=== PATIENT | male | born 1975 | race Caucasian/White ===

== ENCOUNTER 2018-10-14 10:49 | Emergency (ER) | payer BC, SELFPAY ==
[2018-10-14 11:20] VITALS: BP 115/78; PULSE 63; RESP 14; TEMP 36.4; O2SAT 95; BMI 28.5
[2018-10-14] MEDS: IBUPROFEN 400 MG TABLET 800 MG PO (12:25)
[2018-10-14 12:34] LABS: Add Manual Diff / Slide Review NO; Basophils Absolute Auto 0 /uL (0-100); Basophils Percent Auto 0.5 % (0-2); Eosinophils Absolute Auto 100 /uL (0-450); Eosinophils Percent Auto 1.8 % (2-4); Hemoglobin 14.8 g/dL (13.5-17.5); Lymphocytes Absolute Auto 2500 /uL (1100-4500); Lymphocytes Percent Auto 29.6 % (25-40); Mean Corpuscular HGB Conc 34.5 % (30-36); Mean Corpuscular Hemoglobin 28.4 PG (26-34); Mean Corpuscular Volume 82.5 fL (80-100); Monocytes Absolute Auto 700 /uL (0-900); Monocytes Percent Auto 7.9 % (3-14); Neutrophils Absolute Auto 5100 /uL (1500-7000); Neutrophils Percent Auto 60.2 % (50-75); Platelet Count 216 X10^3/uL (150-400); Red Blood Cell Count 5.21 X10^6/uL (4.5-5.9); Red Cell Distribution Width 13.1 % (11.6-14.8); White Blood Cell Count 8.6 X10^3/uL (4.5-11.0)
[2018-10-14 12:40] LABS: BUN Creatinine Ratio 15.6 (6-22); Blood Urea Nitrogen 14 mg/dL (9-20); Calcium 9.1 mg/dL (8.4-10.2); Carbon Dioxide 24 mmol/L (22-32); Chloride 103 mmol/L (98-107); Estimated Glomerular Filt Rate > 60.0 mL/min (>60); Glucose 89 mg/dL (70-100); HEMOLYSIS 24 (0-50); Potassium 3.9 mmol/L (3.4-5.1); Sodium 139 mmol/L (137-145)
[2018-10-14 13:06] LABS: Bacteria Urine None Seen; WBC Urine None Seen (0-5/HPF)
[2018-10-14 13:28] LABS: Culture Indicated Urine Cult Not Indicated; RBC Urine 1-5/HPF (0-5/HPF)
[2018-10-14 13:30] VITALS: BP 117/64; PULSE 68; RESP 18; O2SAT 98
--- NOTE | 2018-10-14 13:32 | DI.CT.S_ITS ---
PROCEDURE: CT KIDNEY URETER BLADDER (KUB) INDICATIONS: ? kidney stones TECHNIQUE: Noncontrast 5 mm thick sections acquired from the diaphragms to the symphysis. 5 mm thick coronal and sagittal reformats were then performed. For radiation dose reduction, the following was used: automated exposure control, adjustment of mA and/or kV according to patient size. COMPARISON: None. FINDINGS: Image quality: Excellent. Lung bases: Lung bases are clear. Heart size is normal. Urinary system: Both kidneys are normal in size. There is a nonobstructing left-sided kidney stone seen inferiorly that measures 12 mm, as on series 2 image 42. There is prominence of the right renal pelvis, yet without a cause of obstruction seen. There is no hydronephrosis seen on either side. Both ureters appear non-dilated throughout their expected courses. Bladder wall thickness is normal; no calcified bladder stones. Other solid organs: Liver is normal in size. Gallbladder wall is not thickened. Pancreas is normal in contours. Spleen is normal in size. No adrenal nodules. Peritoneum and bowel: Unenhanced bowel loops demonstrate normal wall thickness and caliber. No free fluid or air. Appendectomy clips are seen. Nodes and vessels: No retroperitoneal or mesenteric adenopathy by size criteria. Aorta and inferior vena cava are normal in caliber. 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 Abdominal wall: No ventral hernias. Pelvis: No free pelvic fluid. No inguinal hernias or adenopathy. Bones: No suspicious bony lesions. No vertebral body compression fractures. Focal lower lumbar spine degenerative changes are seen at L4-L5 and L5-S1. IMPRESSION: No ureteral stones or hydronephrosis can be seen. There is a 12 mm nonobstructing left-sided kidney stone seen inferiorly. Incidental note is made of: Retroaortic left renal vein Appendectomy Premature lower lumbar spine degenerative change. Dictated by: Liam Tyson M.D. on 10/14/2018 at 13:12 Approved by: Liam Tyson M.D. on 10/14/2018 at 13:16
--- NOTE | 2018-10-14 13:39 | ED_ITS ---
HPI - Male Genitourinary <BEULAH Campos-BC - Last Filed: 10/14/18 17:11> General Chief complaint: Urogenital-Male Stated complaint: Lower back pain Time Seen by Provider: 10/14/18 13:31 Source: patient and family Mode of arrival: ambulatory Limitations: no limitations History of Present Illness HPI Narrative: The patient is a 42-year-old male nonsmoker with history of kidney stones who presents with a chief complaint of lower back pain. He states it started yesterday is consistent with his previous stones. He noticed when he was urinating that there are crystals in it. He denies any fevers. He states he had nausea yesterday, but no longer today. Denies any vomiting. Denies any abdominal pain. He states he took 800 mg of ibuprofen last night for the pain and had another 800 mg this morning in triage. He denies any dysuria urgency or frequency. He is trying to push water. He denies any hematuria. Related Data Previous Rx's Medication Instructions Recorded hydrocodone-acetaminophen 1 tab PO Q4-6H PRN #10 tab 10/14/18 ketorolac 10 mg PO Q6H PRN #8 tab 10/14/18 ondansetron 4 mg PO BID-TID PRN #20 tab 10/14/18 tamsulosin 0.4 mg PO DAILY #7 cap 10/14/18 Allergies Allergy/AdvReac Type Severity Reaction Status Date / Time No Known Drug Allergies Allergy Verified 10/14/18 11:24 Review of Systems <FREDI Campos - Last Filed: 10/14/18 17:11> Review of Systems GENERAL: Denies chills, fatigue, malaise, fever, sweats. HEENT: Denies sinus pain, ear pain, sore throat, difficulty swallowing, dizziness. RESPIRATORY: Denies dyspnea, cough, wheezing, hemoptysis, sputum. CARDIOVASCULAR: Denies chest pain, palpitations, orthopnea, edema, GASTROINTESTINAL: Denies nausea, vomiting, abdominal pain, diarrhea, constipation, melena. : See HPI MUSCULOSKELETAL: denies weakness, joint pain, or bony pain SKIN: Denies rash, skin lesions, or other NEUROLOGIC: Denies weakness, headache, numbness, change in speech, confusion, seizures, incoordination. PSYCHIATRIC: No concerning psychosocial issues. 12 point review of systems is negative except for those stated above PFSH <CHLOE Campos - Last Filed: 10/14/18 17:11> Medical History Kidney stone (Acute) Surgical History History of appendectomy (Acute) Social History Smoking Status: Never smoker Social History Smoking Status: Never smoker Exam <CHLOE Campos - Last Filed: 10/14/18 17:11> Narrative Exam Narrative: GENERAL: This is a well-nourished, well-developed patient, no acute distress HEAD: Atraumatic. Normocephalic. No temporal or scalp tenderness. EYES: Pupils equal round and reactive. Extraocular motions intact. No scleral ic terus. No injection or drainage. ENT: Nose without bleeding, purulent drainage or septal hematoma. Throat without erythema, tonsillar hypertrophy or exudate. Uvula midline. Airway patent. NECK: Trachea midline. No JVD or lymphadenopathy. Supple, nontender, no meningeal signs. CARDIOVASCULAR: Regular rate and rhythm without murmurs, gallops, or rubs. RESPIRATORY: Clear to auscultation. Breath sounds equal bilaterally. No wheezes, rales, or rhonchi. No cough. No increased respiratory effort. GASTROINTESTINAL: Abdomen soft, non-tender, nondistended. No hepato- splenomegaly, or palpable masses. No guarding. EXTREMITIES: No clubbing, cyanosis, or edema. No joint tenderness, effusion, or edema noted. BACK: Nontender without deformity or crepitance. CVA tenderness on the right side, slight CVA tenderness left side NEURO: AOx3. SKIN: No rash or erythema. Initial Vital Signs Initial Vital Signs: Vital Signs Temperature 97.6 F 10/14/18 11:20 Pulse Rate 63 10/14/18 11:20 Respiratory Rate 14 10/14/18 11:20 Blood Pressure 115/78 10/14/18 11:20 Pulse Oximetry 95 10/14/18 11:20 <Lucy Ardon DO - Last Filed: 10/14/18 19:09> Initial Vital Signs Initial Vital Signs: Vital Signs Temperature 97.6 F 10/14/18 11:20 Pulse Rate 63 10/14/18 11:20 Respiratory Rate 14 10/14/18 11:20 Blood Pressure 115/78 10/14/18 11:20 Pulse Oximetry 95 10/14/18 11:20 Course <CHLOE Campos - Last Filed: 10/14/18 17:11> Orders Ordered: ED Orders 10/14/18 12:01 Urine Microscopic Stat 10/14/18 12:21 Basic Metabolic Panel Stat CBC [Complete Blood Count AUTO DIFF] Stat 10/14/18 13:32 CT kidney ureter bladder (KUB) Stat Discontinued Medications Ibuprofen (Advil) 800 mg PO NOW ONE Stop: 10/14/18 12:25 Last Admin: 10/14/18 12:25 Dose: 800 mg Vital Signs - 8 hr 10/14/18 11:20 10/14/18 13:30 10/14/18 14:47 Temperature 97.6 F Pulse Rate 63 68 70 Respiratory Rate 14 18 14 Blood Pressure 115/78 Blood Pressure [Right Arm] 117/64 118/72 Pulse Oximetry 95 98 98 <Lucy Ardon DO - Last Filed: 10/14/18 19:09> Orders Ordered: ED Orders 10/14/18 12:01 Urine Microscopic Stat 10/14/18 12:21 Basic Metabolic Panel Stat CBC [Complete Blood Count AUTO DIFF] Stat 10/14/18 13:32 CT kidney ureter bladder (KUB) Stat Discontinued Medications Ibuprofen (Advil) 800 mg PO NOW ONE Stop: 10/14/18 12:25 Last Admin: 10/14/18 12:25 Dose: 800 mg Vital Signs - 8 hr 10/14/18 11:20 10/14/18 13:30 10/14/18 14:47 Temperature 97.6 F Pulse Rate 63 68 70 Respiratory Rate 14 18 14 Blood Pressure 115/78 Blood Pressure [Right Arm] 117/64 118/72 Pulse Oximetry 95 98 98 MDM - Male Genitourinary <CHLOE Campos - Last Filed: 10/14/18 17:11> Lab Data Result diagrams: 10/14/18 12:21 10/14/18 12:21 Lab Results 05/1110/14/18 10/14/18 Range/Units 12:01 12:21 12:21 WBC 8.6 (4.5-11.0) X10^3/uL RBC 5.21 (4.5-5.9) X10^6/uL Hgb 14.8 (13.5-17.5) g/dL Hct 43.0 (41-53) % MCV 82.5 (80-100) fL MCH 28.4 (26-34) PG MCHC 34.5 (30-36) % RDW 13.1 (11.6-14.8) % Plt Count 216 (150-400) X10^3/uL Neut % (Auto) 60.2 (50-75) % Lymph % (Auto) 29.6 (25-40) % [place] % (Auto) 7.9 (3-14) % Eos % (Auto) 1.8 L (2-4) % Baso % (Auto) 0.5 (0-2) % Neut # (Auto) 5100 (7537-7303) /uL Lymph # (Auto) 2500 (5650-6632) /uL [place] # (Auto) 700 (0-900) /uL Eos # (Auto) 100 (0-450) /uL Baso # (Auto) 0 (0-100) /uL Sodium 139 (137-145) mmol/L Potassium 3.9 (3.4-5.1) mmol/L Chloride 103 (98-107) mmol/L Carbon Dioxide 24 (22-32) mmol/L BUN 14 (9-20) mg/dL Creatinine 0.90 (0.66-1.25) mg/dL Estimated GFR > 60.0 (>60) mL/min BUN/Creatinine Ratio 15.6 (6-22) Glucose 89 (70-100) mg/dL Calcium 9.1 (8.4-10.2) mg/dL Urine RBC 1-5/hpf (0-5/HPF) Urine WBC None seen (0-5/HPF) Urine Bacteria None seen (None) Ur Culture Indicated? Cult not indicated Urine Dip Bedside Urine Glucose Negative Bedside Urine Bilirubin - Negative Bedside Urine Ketone - Negative Urine Specific [place] 1.015 Bedside Urine Occult Blood + Bedside Urine pH 5.5 Bedside Urine Protein - Negative Bedside Urine Urobilinogen - Negative Bedside Urine Nitrite - Negative Bedside Urine Leukocytes - Negative Esterase Imaging Data CT scan - abdomen: Radiologist's impression: Natan Andrews 42 M [address] [address] [address] Scan Report Signed Patient: Natan Andrews#: [id number] : 1975Acct:[id number] Age/Sex: 42 / MDate of Service: 10/14/18 Loc: ED Accession Number: [id number] Procedure: CT kidney ureter bladder (KUB) Ordering Provider: Lucy Silver- PROCEDURE: CT KIDNEY URETER BLADDER (KUB) INDICATIONS: ? kidney stones TECHNIQUE: Noncontrast 5 mm thick sections acquired from the diaphragms to the symphysis. 5 mm thick coronal and sagittal reformats were then performed. For radiation dose reduction, the following was used: automated exposure control, adjustment of mA and/or kV according to patient size. COMPARISON: None. FINDINGS: Image quality: Excellent. Lung bases: Lung bases are clear. Heart size is normal. Urinary system: Both kidneys are normal in size. There is a nonobstructing left-sided kidney stone seen inferiorly that measures 12 mm, as on series 2 image 42. There is prominence of the right renal pelvis, yet without a cause of obstruction seen. There is no hydronephrosis seen on either side. Both ureters appear non-dilated throughout their expected courses. Bladder wall thickness is normal; no calcified bladder stones. Other solid organs: Liver is normal in size. Gallbladder wall is not thickened. Pancreas is normal in contours. Spleen is normal in size. No adrenal nodules. Peritoneum and bowel: Unenhanced bowel loops demonstrate normal wall thickness and caliber. No free fluid or air. Appendectomy clips are seen. Nodes and vessels: No retroperitoneal or mesenteric adenopathy by size criteria. Aorta and inferior vena cava are normal in caliber. 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 Abdominal wall: No ventral hernias. Pelvis: No free pelvic fluid. No inguinal hernias or adenopathy. Bones: No suspicious bony lesions. No vertebral body compression fractures. Focal lower lumbar spine degenerative changes are seen at L4-L5 and L5-S1. IMPRESSION: No ureteral stones or hydronephrosis can be seen. There is a 12 mm nonobstructing left-sided kidney stone seen inferiorly. Incidental note is made of: Retroaortic left renal vein Appendectomy Premature lower lumbar spine degenerative change. Dictated by: Liam Tyson M.D. on 10/14/2018 at 13:12 Approved by: Liam Tyson M.D. on 10/14/2018 at 13:16 MDM Narrative Medical decision making narrative: The patient is a 42-year-old male who presents with a chief complaint of probable kidney stone. He was found have 12 mm stone in the inferior portion of his left kidney. He does not have any stones in his ureters at this point in time. However he was urinating shards earlier today. Thus I will treat him with Flomax, nausea medication and pain medication. He was given a prescription of Zofran, [place], as well as Toradol. I discussed at length not taking other anti-inflammatory medication with the Toradol. Encouraged follow-up primary care provider, pushing fluids and straining urine. Discussed follow-up if fever, burning on urination signs of infection inability keep down fluids etc. Patient and father had no questions or concerns upon discharge. <Lucy Ardon, DO - Last Filed: 10/14/18 19:09> Lab Data Lab Results 10/14/18 10/14/18 10/14/18 Range/Units 12:01 12:21 12:21 WBC 8.6 (4.5-11.0) X10^3/uL RBC 5.21 (4.5-5.9) X10^6/uL Hgb 14.8 (13.5-17.5) g/dL Hct 43.0 (41-53) % MCV 82.5 (80-100) fL MCH 28.4 (26-34) PG MCHC 34.5 (30-36) % RDW 13.1 (11.6-14.8) % Plt Count 216 (150-400) X10^3/uL Neut % (Auto) 60.2 (50-75) % Lymph % (Auto) 29.6 (25-40) % [place] % (Auto) 7.9 (3-14) % Eos % (Auto) 1.8 L (2-4) % Baso % (Auto) 0.5 (0-2) % Neut # (Auto) 5100 (5634-8885) /uL Lymph # (Auto) 2500 (0987-2416) /uL [place] # (Auto) 700 (0-900) /uL Eos # (Auto) 100 (0-450) /uL Baso # (Auto) 0 (0-100) /uL Sodium 139 (137-145) mmol/L Potassium 3.9 (3.4-5.1) mmol/L Chloride 103 (98-107) mmol/L Carbon Dioxide 24 (22-32) mmol/L BUN 14 (9-20) mg/dL Creatinine 0.90 (0.66-1.25) mg/dL Estimated GFR > 60.0 (>60) mL/min BUN/Creatinine Ratio 15.6 (6-22) Glucose 89 (70-100) mg/dL Calcium 9.1 (8.4-10.2) mg/dL Urine RBC 1-5/hpf (0-5/HPF) Urine WBC None seen (0-5/HPF) Urine Bacteria None seen (None) Ur Culture Indicated? Cult not indicated Urine Dip Bedside Urine Glucose Negative Bedside Urine Bilirubin - Negative Bedside Urine Ketone - Negative Urine Specific [place] 1.015 Bedside Urine Occult Blood + Bedside Urine pH 5.5 Bedside Urine Protein - Negative Bedside Urine Urobilinogen - Negative Bedside Urine Nitrite - Negative Bedside Urine Leukocytes - Negative Esterase Discharge Plan Departure Patient Disposition: Home Clinical Impression: Kidney calculi Discharge Date/Time: 10/14/18 14:49 Interventions: ED Discharge Assessment Last Done: 10/14/18 14:48 Instructions: DI for Kidney Stones Activity Restrictions/Additional Instructions: Your CT scan shows no stones in the ureters. However you do have a 12 mm stone in your left kidney. However given your history and the fact that you found stones in your urine earlier, Riana treats she with Flomax pain medication and nausea medication. Be aware that the hydrocodone can be sedating and constipating. Please push fluids. Please do not combine the Toradol with Aleve ibuprofen or other NSAIDs. Please follow up with primary care provider. Please monitor for fever, burning on urination or signs of infection. Please be evaluated if any of these occur. Prescriptions: New hydrocodone-acetaminophen 5-325 mg tablet 1 tab PO Q4-6H PRN (Reason: pain) Qty: 10 RF: 0 tamsulosin 0.4 mg capsule 0.4 mg PO DAILY Qty: 7 RF: 0 ondansetron 4 mg tablet,disintegrating 4 mg PO BID-TID PRN (Reason: nausea and vomiting) Qty: 20 RF: 0 ketorolac 10 mg tablet 10 mg PO Q6H PRN (Reason: pain) Qty: 8 RF: 0 <Lucy Ardon DO - Last Filed: 10/14/18 19:09> Cosign ED Attending Cosignature Attestation: I was immediately available in the department for consultation. This documentation has been reviewed and I agree with assessment and plan. Supervised by Lucy Ardon DO
[2018-10-14 14:47] VITALS: BP 118/72; PULSE 70; RESP 14; O2SAT 98
== END 2018-10-14 14:49 | disposition home or self-care (01) ==
PROVIDERS: Emergency Medicine; Emergency Provider Nurse Practitioner Family
DX: N20.0 Calculus of kidney (principal); M54.5 Low back pain
CPT/HCPCS: 36415; 74176; 80048; 81003; 81015; 85025; 99283; 99284